=== PATIENT | male | born 1960 | race African-American/Black ===

== ENCOUNTER 2020-05-05 12:52 | Emergency (ER) | payer MEDICARE, MEDICAID ==
[~2020-05-05] VITALS: Ht 180.3 cm; Wt 88.5 kg
[2020-05-05 12:53] VITALS: BP 121/86
[2020-05-05] MEDS ORDERED: methylPREDNISolone SOD SUCC 125 MG/2 ML VL IM ONE (15:00)
[2020-05-05] MEDS ORDERED: KETOROLAC TROMETH 60MG/2ML VIAL IM ONE (15:00)
== END 2020-05-05 15:35 | disposition home or self-care (01) ==
LOC: ER 12:52
DX: M79.672 Pain in left foot (principal); M10.9 Gout, unspecified; I10 Essential (primary) hypertension; F10.20 Alcohol dependence, uncomplicated; Y90.9 Presence of alcohol in blood, level not specified
CPT/HCPCS: 96372; 99284; J1885; J2930